=== PATIENT | female | born 1950 | race Caucasian/White ===

== ENCOUNTER 2017-07-24 21:57 | Emergency (ER) | payer MEDICARE, OTHER ==
[2017-07-24 22:17] VITALS: BP 142/74
--- NOTE | 2017-07-24 23:16 | ED Physician Documentation ---
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) Duration: persistent since Associated Symptoms: denies: numbness distally, feeling loss Modifying Factors: pain on movement - ROS CONST: no problems CVS/RESP: none NEURO: none MS/SKIN/LYMPH: none GI/: denies: problems urinating, nausea, vomiting - PAST HX Past History: Rt handed, other (CA BREAST) Allergies/Adverse Reactions: Allergies Allergy/AdvReac Type Severity Reaction Status Date / Time No Known Drug Allergies Allergy Verified 07/24/17 22:09 Home Medications: Ambulatory Orders Medication Instructions Recorded Anastrozole [Arimidex] 1 mg PO D 07/24/17 - SOCIAL HX Smoking History: non-smoker Alcohol Use: none Drug Use: none - FAMILY HX Family History: no significant history - VITAL SIGNS Vital Signs: Vital Signs Temp Pulse Resp BP Pulse Ox 97.9 F 82 14 142/74 97 07/24/17 21:58 07/24/17 21:58 07/24/17 21:58 07/24/17 21:58 07/24/17 21:58 - REVIEWED ASSESSMENTS Nursing Assessment Reviewed: Yes Vitals Reviewed: Yes ED Results Lab/Radiology - Radiology Radiology Impressions: NO FRACTURE SEEN - Orders Orders: ED Orders Category Date Time Status WRIST 3 VIEWS OR MORE [RAD] Stat Exams 07/24/17 Ordered Upper Extremity Injury Physic - Physical Exam General Appearance: mild distress Hand: normal inspection, non-tender Wrist: limited ROM, soft tissue tenderness. No: normal inspection, normal ROM, abrasions, asymmetry, bone tenderness, deformity, ecchymosis Elbow/Forearm: normal inspection Shoulder: normal inspection Neuro/Vascular/Tendon: no vascular compromise Skin: warm,dry Head/ENT: nml inspection Neck/Back: nml inspection Resp/CVS: chest non-tender, breath sounds nml, heart sounds nml, lungs clear, reg. rate & rhythm Discharge Clincal Impression: LT WRISTOVERUSE SYNDROME Referrals: Asim Mcintosh MD [Primary Care Provider] - 2 Days Comments: WEAR WRIST BRACE USE LESS IE CHG WORKING HABITS TO USE BOTH HANDS Condition: Good Disposition: 01 HOME, SELF-CARE Decision to Admit: NO Decision Time: 23:56
--- NOTE | 2017-07-25 07:30 | Diagnostic Imaging Report ---
[facility] [address] [facility].[address] [address] Report Submission Date: Jul 24, 2017 11:42:01 PM [employer] Patient Study Name: SRINIVASAN URRUTIA Date: Jul 24, 2017 11:01:23 PM [employer] Modality Type: CR Gender: F Description: UPPER EXTREMITY : 52 Institution: [facility] Physician: DEEDEE DIEZ left wrist 3 views History: Pain Findings: Early 1st carpometacarpal osteoarthritis is present. There is no fracture or dislocation. Electronically signed on Jul 24, 2017 11:42:01 PM [employer] by: Avtar HINDS
== END 2017-07-24 23:58 | disposition home or self-care (01) ==
LOC: ED 21:57
DX: M70.832 Other soft tissue disorders related to use, overuse and pressure, left forearm (principal)
CPT/HCPCS: 73110; 99283

== ENCOUNTER 2017-11-30 07:40 | Outpatient (CLI) | payer MEDICARE, OTHER ==
[2017-11-30 08:23] LABS: eGFR (African) > 60; eGFR (Non-African) > 60
== END 2017-11-30 07:42 ==
LOC: LAB 07:40
PROVIDERS: ATTEND Family Medicine
DX: E78.2 Mixed hyperlipidemia (principal)
CPT/HCPCS: 36415; 80053; 80061

== ENCOUNTER 2018-05-20 13:33 | Outpatient (CLI) | payer MEDICARE, OTHER ==
--- NOTE | 2018-05-23 09:41 | OP Clinic Progress Note ---
REASON FOR VISIT: Bill Melissa returns for follow up of psoriasis and psoriatic arthritis. When I last saw her in February, I bumped up her methotrexate to 8 tablets weekly and she has finally noted some improvement. Initial presentation was throbbing pain rated as 8 over 10 involving the left wrist, the right 4th PIP, the ankles, and the right shoulder. She carried a diagnosis of psoriasis by biopsy in 2011. She has been able to stop her triamcinolone cream and feels that the methotrexate has helped. She recently had blood work at [facility]. Skin involvement used to be of the eyes, scalp, hands, elbows, and below the right breast. The right breast lesion resolved after radiation treatment for breast cancer. PAST MEDICAL AND SURGICAL HISTORY: 1. Psoriasis. 2. Hyperlipidemia. 3. Benign left renal tumor. 4. Carpal tunnel syndrome. 5. Colonoscopy. 6. Cancer in the right breast, status post lumpectomy. PRESENT MEDICATIONS: 1. Methotrexate 8 tablets weekly. 2. Folic acid 1 mg daily. 3. Tramadol as needed. 4. Occasional ibuprofen. 5. Claritin. 6. Atorvastatin 10 mg daily. 7. Anastrozole 1 mg daily. ALLERGIES: She has no known drug allergies. SOCIAL HISTORY: Patient does not smoke or drink. REVIEW OF SYSTEMS: No fevers, chills, sweats, chest pain, shortness of breath, cough, wheezing, nausea, vomiting, or diarrhea. PHYSICAL EXAMINATION: VITAL SIGNS: Height: 5 feet 1 inch. Weight: 176. T: 97.4, R: 20, heart rate 77, BP: 140/75. HEENT: Sclerae are anicteric. Conjunctivae are pink. No stomatitis or glossitis. LUNGS: Clear bilaterally with no crackles or wheezing. HEART: Regular rate and rhythm. Normal S1 and S2. ABDOMEN: Soft and nontender. SKIN: Shows 1 lesion on left 2nd MCP joint. PERIPHERAL JOINTS: DIPs, PIPs, MCPs, wrists, elbows, shoulders, hips, knees, ankles, and feet, no synovitis. She does have bilateral ankle tenderness and a little Achilles tendon tenderness. LABORATORY: Her last blood work from March 11, sedimentation rate was 6, creatinine 0.75, AST and ALT were 20 and 22, respectively. CBC, white count 5.51, hemoglobin 12.8, platelets 251,000 and normal hematocrit. IMPRESSION: 1. Psoriasis. 2. Psoriatic arthritis. 3. High risk drug/ PLAN: 1. She just had labs at [facility]. We will try to get those. Otherwise, she is doing well. 2. Continue methotrexate 8 tablets weekly. 3. I will see her back in 2 months. cc: Dr. Asim HINDS
== END 2018-05-20 13:35 ==
LOC: RHEU 13:33
PROVIDERS: ATTEND Internal Medicine
DX: L40.9 Psoriasis, unspecified (principal); L40.52 Psoriatic arthritis mutilans; Z79.899 Other long term (current) drug therapy
CPT/HCPCS: 99214; G0463

== ENCOUNTER 2018-07-15 13:32 | Outpatient (CLI) | payer MEDICARE, OTHER ==
--- NOTE | 2018-07-18 08:28 | OP Clinic Progress Note ---
REASON FOR VISIT: Bill Melissa returns for follow up of psoriasis and psoriatic arthritis. She is doing quite well. Her pain right now is 3/10, down from 8/10. The swelling in the left wrist has resolved. The swelling in her feet and Achilles pain has resolved and she is able to wear her watch and her shoes. The only skin involvement at present is in the left hand with resolution of the lesions of her eyes, scalp, elbows, and right breast. PAST MEDICAL AND SURGICAL HISTORY: 1. Psoriasis. 2. Hyperlipidemia. 3. Benign left renal tumor. 4. Carpal tunnel release. 5. Colonoscopy. 6. Right breast cancer, status post lumpectomy. PRESENT MEDICATIONS: 1. Methotrexate 8 tablets weekly. 2. Folic acid 1 mg daily. 3. Tramadol as needed. 4. Ibuprofen p.r.n. 5. Claritin. 6. Atorvastatin 10 mg daily. 7. Anastrozole 1 mg daily. ALLERGIES: She has no known drug allergies. SOCIAL HISTORY: She is . She does not smoke or drink. She works at [employer]. REVIEW OF SYSTEMS: Rest of the systems reviewed, no fevers, chills, sweats, chest pain, shortness of breath, cough, wheezing, nausea, vomiting, or diarrhea. No mouth sores. PHYSICAL EXAMINATION: VITAL SIGNS: Weight: 178. T: 97.8, P: 65, R: 18, BP: 116/76. HEENT: Sclerae are anicteric. Conjunctivae are pink. No stomatitis or glossitis. LUNGS: Clear with no crackles or wheezing. HEART: Regular rate and rhythm. ABDOMEN: Soft and nontender. SKIN: Faint lesion at left 2nd MCP. JOINTS: DIPs, PIPs, MCPs, wrists, elbows, shoulders, hips, knees, both ankles and Achilles tendon, and feet are all unremarkable. She does, however, have some pain on internal and external rotation of the left hip with minimal restriction and she has a negative straight leg raising tests. IMPRESSION: 1. Psoriasis. 2. Psoriatic arthritis. 3. High risk drug. PLAN: 1. We will get her labs done. I am also including a fasting lipid profile to monitor her hyperlipidemia and order a statin. 2. I will see her back in 2 months. Thank you very much. cc: Dr. Asim Mcintosh ADDENDUM: She has had her flu shot. I have encouraged her to get her Shingrix vaccination. LIZET
== END 2018-07-15 13:37 | disposition home or self-care (01) ==
LOC: RHEU 13:32
PROVIDERS: ATTEND Internal Medicine
DX: L40.59 Other psoriatic arthropathy (principal); L40.9 Psoriasis, unspecified; E78.5 Hyperlipidemia, unspecified
CPT/HCPCS: 99213; G0463

== ENCOUNTER 2018-07-19 07:53 | Outpatient (CLI) | payer MEDICARE, OTHER ==
[2018-07-19 08:36] LABS: eGFR (Non-African) > 60
[2018-07-19 08:38] LABS: BASOPHILS % 0.2 (0.0-1.5); EOSINOPHILS % 2.1 % (0.0-6.8); MEAN CORPUSCULAR HEMOGLOBIN 30.3 pg (28.0-34.0); NEUTROPHILS # 3.9 # k/uL (1.4-7.7)
== END 2018-07-19 07:54 ==
LOC: LAB 07:53
PROVIDERS: ATTEND Internal Medicine
DX: M13.0 Polyarthritis, unspecified (principal)
CPT/HCPCS: 36415; 80053; 80061; 85025; 85651

== ENCOUNTER 2018-07-25 16:42 | Outpatient (CLI) | payer MEDICARE, OTHER | END 2018-07-25 16:43 | LOC: LABRHC 16:42 | PROVIDERS: ATTEND Family Medicine | DX: L40.50 Arthropathic psoriasis, unspecified (principal); Z79.899 Other long term (current) drug therapy | CPT/HCPCS: 87086 ==

== ENCOUNTER 2019-03-15 09:55 | Outpatient (CLI) | payer OTHER ==
--- NOTE | 2019-03-15 10:57 | Diagnostic Imaging Report ---
[facility] JOSEPH [facility] [address] [facility] [address] [address] Report Submission Date: Mar 15, 2019 10:55:24 AM CDT Patient Study Name: SRINIVASAN URRUTIA Date: Mar 15, 2019 9:59:27 AM CDT Modality Type: DX Gender: F Description: KNEE 3 VIEWS : 52 Institution: [facility] Physician: EDSON JOSEPH Examination: Plain film left knee History: LEFT KNEE PAIN x3-4 WEEKS, NO INJURY Findings: 3 views of the left knee demonstrates normal cortical margins. No fracture. No dislocation. No joint effusion. No soft tissue irregularity. Impression: No acute osseous abnormality Electronically signed on Mar 15, 2019 10:55:24 AM CDT by: Guanako HINDS
== END 2019-03-15 09:57 ==
LOC: RAD 09:55
PROVIDERS: ATTEND Family Medicine
DX: M25.562 Pain in left knee (principal)
CPT/HCPCS: 73562